=== PATIENT | male | born 1940 | race Caucasian/White ===

== ENCOUNTER 2024-06-18 16:44 | Day surgery (SDC) | payer MEDICARE, SELFPAY ==
[2024-06-18] VITALS (7 sets, daily range): BP systolic 112–161; BP diastolic 62–78; PULSE 62–76; RESP 12–18; TEMP 36.4–36.9; O2SAT 94–97; BMI 39.4
--- NOTE | 2024-06-18 17:07 | XR_ITS ---
Examination: PA chest single view Technique: Upright PA chest single view Exam date and time: June 18, 2024 1718 hrs. Comparison February 01, 2023 Indications: Hematoma post pacemaker insertion today. Findings: Normal heart size No pneumothorax or pulmonary contusion, no pulmonary hemorrhage or hemothorax Cardiac leads satisfactory position Osseous structures intact Impression: Cardiac leads satisfactory position No pneumothorax
[2024-06-18 17:38] LABS: Basophils # (Auto) 0.1 Thou/mm3 (0.0-0.2); Basophils % (Auto) 1 % (0-2.5); Eosinophils # (Auto) 0.1 Thou/mm3 (0.0-0.5); Eosinophils % (Auto) 1 % (0-10); Hematocrit 45.1 % (41.0-53.0); Hemoglobin 14.8 g/dL (13.5-16.0); Immature Granulocytes % (Auto) 1 % (0-0); Immature Granulocytes Auto 0.05 Thou/mm3 (0.00-0.00); Lymphocytes # (Auto) 1.2 Thou/mm3 (1.0-4.8); Lymphocytes % (Auto) 12 % (10-50); Mean Corpuscular HGB Conc 32.8 g/dl (31.0-37.0); Mean Corpuscular Hemoglobin 31.4 pg (25.0-35.0); Mean Corpuscular Volume 96 fL (80-100); Monocytes % (Auto) 10 % (0-12); Neutrophils # (Auto) 7.5 Thou/mm3 (1.8-7.7); Neutrophils % (Auto) 75 % (37-80); Nucleated Red Blood Cell % 0 /100 WBC (0); Platelet Count 243 Thou/mm3 (140-440); RDW Standard Deviation 53.9 fL (35.1-43.9); Red Blood Count 4.72 Miln/mm3 (4.50-5.90)
[2024-06-18 17:59] LABS: Partial Thromboplastin Time 26.7 Seconds (22.0-36.0); Prothrombin Time 11.1 Seconds (9.0-12.2)
[2024-06-18 18:00] LABS: Alanine Aminotransferase 10 U/L (10-49); Albumin/Globulin Ratio 1.3 (1.2-2.2); Alkaline Phosphatase 86 U/L (46-116); Anion Gap 5 (7-16); Aspartate Amino Transferase 21 U/L (0-34); BUN/Creatinine Ratio 11 Ratio (12-20); Bilirubin,Total 0.8 mg/dL (0.3-1.2); Blood Urea Nitrogen 18 mg/dL (9-23); Carbon Dioxide 22.9 mMol/L (20.0-31.0); Chloride 108 mMol/L (98-107); Creatinine (Component) 1.7 mg/dL (0.6-1.3); Estimated Creatinine Clearance 45.2 mL/min (>60); Glucose 117 mg/dL (74-106); Osmolality,Calculated 274 (275-295); Potassium 4.4 mMol/L (3.4-5.1); Sodium 136 mMol/L (136-145); eGFR 40 See Note
--- NOTE | 2024-06-18 19:00 | XR_ITS ---
Examination: AP chest 3 views Fluoroscopy Exam date and time: June 18, 20242016 hrs. Indications: Pacemaker revision today technique and findings: Technique And Findings: 3 spot fluoroscopic films of the chest Transvenous dual-chamber bipolar cardiac leads satisfactory position No pneumothorax noted Fluoroscopy 104 seconds radiation dose 28.67 milligray Impression: Cardiac leads satisfactory position
--- NOTE | 2024-06-18 20:17 | PD.EDRME ---
Rapid Medical Screening Exam [facility] Arrival date/time: 06/18/24 16:44 Chief Complaint: General Adult/Misc Complain Vital signs: Vital Signs Temperature 98.5 F 06/18/24 17:01 Pulse Rate 76 06/18/24 17:01 Respiratory Rate 18 06/18/24 17:01 Blood Pressure 112/65 06/18/24 17:01 Pulse Oximetry (%) 95 06/18/24 17:01 Oxygen Delivery Method Room Air 06/18/24 17:01 [facility] Narrative: I did not see the patient. I did not meet the patient. I did not take care of the patient. Gustavo Solis MD
--- NOTE | 2024-06-18 20:43 | SUR.PHASEI ---
2043: Pt. AAOx4, vitals stable, breathing unlabored, no complaint of pain or nausea, dressing to left upper chest CDI, no active bleed noted, report received from Kit STEVE and Tash TUBBS.
--- NOTE | 2024-06-18 21:20 | SUR.PHASEI ---
2120: Pt. AAOx4, vitals stable, breathing unlabored, no complaint of pain or nausea, dressing to left upper chest CDI, no active bleed noted, sling placed on left arm, pt. tolerated sips of water well, gave report to Irma TUBBS prior to transfer to room. Family made aware of transfer to room, pt. transferred with all his personal belongings.
--- NOTE | 2024-06-18 21:29 | ESOP_ITS ---
RE: GREGORIA MCBRIDE : 1940 DATE OF OPERATION: 06/18/2024 TIME: 8 p.m. OPERATION PERFORMED: 1. Evacuation of the hematoma site of permanent pacemaker implantation. 2. Repositioning of the ventricular lead and revision of the pocket. 3. Conscious sedation. DIAGNOSES: Status post permanent pacemaker implantation, large hematoma and ventricle lead slightly misplaced. HISTORY AND INDICATIONS: The patient is an 83-year-old male with history of sick sinus syndrome and paroxysmal AFib episode, admitted to the hospital in the morning as an outpatient surgery, underwent successful dual-chamber pacemaker implantation, was excellent. He went home and around 4 p.m., about 8 hours after the procedure, he moved and suddenly experienced bleeding at the site of the procedure with a large hematoma. Hence, the patient came to the emergency room. We admitted to the hospital the patient for evacuation of large hematoma and repositioning of the lead. Chest x-ray did show some decreased slack in the ventricular lead, also could not tell the position of the atrial lead, hence recommended to have a fluoroscopy and also pacemaker revision replacement. DESCRIPTION OF PROCEDURE: The patient was brought to the operating room. Conscious sedation, monitored anesthesia was given by anesthesiologist POWER. The patient was sedated. Left subclavian area was prepared in sterile fashion. A local anesthesia was given and luli were removed and the suture was cut and a large hematoma was evacuated successfully. Antibiotic irrigation fluid was used to irrigate the pocket. Subsequently, the ventricle lead appears to have good thresholds in atrium and ventricle, but the lead had some less slack. The ventricular lead was repositioned and extra slack was given and the ventricular lead was anchored to the pectoral fascia with 2-0 silk suture. Subsequently, the Yoogaia dual-chamber pacemaker generator was then repositioned and secured to the pectoral fascia. The subcutaneous tissue was closed using 2-0 chromic continuous suture. Skin was closed using luli. I also placed a pursestring suture around the leads to stop the bleeding and lessen the chance of bleeding from vein. The patient tolerated the operation very well. Cardiac fluoroscopy confirmed good placement of the leads. It was used to monitor the placement and repositioning of the leads. FINAL SUMMARY: Successful revision of the pocket with evacuation of the hematoma with good results. Successful repositioning, increasing the slack in the right ventricular lead. Thresholds were re-measured again and found to be excellent. The atrial threshold was excellent. The P waves are 4 millivolts, threshold of 0.75 volts. Ventricle threshold was also excellent. The amplitude was at 12 millivolts. The lead impedance in atrium was 530, ventricle 530. The ventricle threshold was 1 volt. The pacemaker was reprogrammed to DDDR mode, 60-130 beats per minute. The device details are as follows: The device that was implanted in the morning, same device was used, model number [id number], Yoogaia, serial number is [id number]. The patient will be admitted to the hospital, overnight observation. Antibiotics will be given and monitoring for any bleeding. DT: 20:55:44 TT: 21:27:00 Ref: [id number] - TID: [id number]
--- NOTE | 2024-06-18 21:37 | ESHP_ITS ---
RE: GREGORIA MCBRIDE : 1940 DATE OF ADMISSION: 06/18/2024 TIME OF ADMISSION: 7 p.m. REASON FOR ADMISSION: Postop following evacuation of the pacemaker hematoma and revision of the pocket. CHIEF COMPLAINT: Swelling at the site of pacemaker. HISTORY OF PRESENT ILLNESS: The patient is an 83-year-old male with history of sick sinus syndrome, underwent permanent pacemaker implantation 8 o'clock in the morning today, went home around 12 o'clock. He was doing well until about 4 o'clock, suddenly experienced swelling at the site and bleeding and large hematoma, came to my office, he was sent to the emergency department, fairly large hematoma was seen. There is also question of ventricle lead slack lessen and recommended to have repositioning of the leads, evacuation of hematoma. The patient is being admitted to the hospital. The patient underwent the procedure successfully, evacuation of hematoma was performed, given antibiotic and the patient had conscious sedation. Because of the lead dislodgement easily and also to revise procedure, we are admitting the patient for observation overnight for monitoring for bleeding at the site of surgery and also giving prophylactic IV antibiotics following surgery for next 2 doses in 24 hours. ALLERGIES: NONE. HOME MEDICATIONS: 1. Amiodarone 200 mg daily. 2. Levothyroxine 75 mcg daily. 3. Pantoprazole 40 mg daily. 4. Atorvastatin 10 mg daily. PAST MEDICAL HISTORY: Hypertension, sick sinus syndrome, hypercholesteremia, and hypothyroidism. SOCIAL HISTORY: The patient has paroxysmal atrial fibrillation, sick sinus syndrome. SOCIAL HISTORY: The patient is , lives with . He does not drink alcoholic beverages. FAMILY HISTORY: Noncontributory. REVIEW OF SYSTEMS: CARDIOVASCULAR: Swelling at the site of pacemaker. No chest pain or shortness of breath. No dizziness. GASTROINTESTINAL: No nausea or vomiting. GENITOURINARY: No frequency or dysuria. SUPERVISOR STRIPPING: No neurological symptoms. PHYSICAL EXAMINATION: GENERAL: Well-nourished, pleasant male, alert, awake, in no acute distress. VITAL SIGNS: Blood pressure 120/62, pulse rate is 70, respirations 16, temperature normal. HEENT: Head is atraumatic, normocephalic. Eyes: Normal. ENT: Normal. NECK: Supple. No JVD. Carotid pulses felt, but no bruits. CHEST: Symmetrical. LUNGS: Clear. CARDIOVASCULAR: Heart sounds are regular. No gallops or murmurs. ABDOMEN: Thin and soft. EXTREMITIES: No edema. Chest showed evidence of a 7 x 6 cm hematoma at the site of pacemaker implantation in left subclavian area and small ecchymosis. Chest x-ray showed evidence of possible less slack on ventricle leads. No pneumothorax. LABORATORY STUDIES: Showed coagulation panel normal. CBC is normal. Chemistry panel is normal. slightly elevated creatinine 1.7. ASSESSMENT: 1. Hematoma at the site of pacemaker implantation, requiring revision of the pacemaker and reposition of lead and evacuation of hematoma requiring hospitalization observation. 2. Hypertension. 3. Hypothyroidism. 4. Paroxysmal atrial fibrillation. 5. Sick sinus syndrome. 6. Hypercholesterolemia. 7. Chronic kidney disease, stage IIIB. RECOMMENDATIONS: The patient is recommended to continue medical management, overnight observation. We will discharge the patient home tomorrow on antibiotics. Continue IV Ancef for next 2 doses and tomorrow after morning rounds if he feels well, discharge him home on oral antibiotics. DT: 20:51:58 TT: 21:27:00 Ref: [id number] - TID: [id number]
[2024-06-19] VITALS: BP 107/54; PULSE 82; RESP 18; TEMP 36; O2SAT 95
[2024-06-19 03:51] VITALS: BP 149/63; PULSE 70; RESP 18; TEMP 36; O2SAT 97
[2024-06-19] MEDS: ceFAZolin/D5W 2 GM IV 2 GM/100 ML BAG IV ×2 (04:29→11:04)
[2024-06-19] MEDS: LEVOTHYROXINE SODIUM 25 MCG TABLET 75 MCG PO (05:33)
[2024-06-19 08:00] VITALS: BP 121/45; PULSE 70; RESP 20; TEMP 36.9; O2SAT 97
[2024-06-19] MEDS: PANTOPRAZOLE 20 MG TABLET 40 MG PO (08:28)
[2024-06-19 08:29] VITALS: BP 121/45; PULSE 70
[2024-06-19] MEDS: AMIODARONE HCL 200 MG TABLET PO (08:29)
[2024-06-19] MEDS: ATORVASTATIN CALCIUM 10 MG TABLET PO (08:29)
--- NOTE | 2024-06-19 08:53 | PC.SS ---
ELECTRICIAN SUBSTATION SUPERVISOR met with patient to obtain initial information. Patient is alert and oriented. Patient currently on 2L of O2. Patient comes from home, he reports living alone. Home address is [address] [place] [address] (different on FS). Patient identified his son, Zaid Jarquin as medical surrogate decision maker. PCP is Dr. Jeff. Pharmacy of choice is [facility] on [address]. Patient states he is independent with ADL's and denies utilizing any DME at home. Patient states he does not utilize any supplemental O2 at home. If needed before d/c he does not have a preferred DME vendor. Discharge plan is to return home, and his son Zaid will assist with transportation home. No needs identified at this time. D/c plan: home Next of kin: son, Zaid Jarquin
[2024-06-19 12:00] VITALS: BP 138/45; PULSE 64; RESP 19; TEMP 36.4; O2SAT 95
== END 2024-06-19 13:51 | disposition home or self-care (01) ==
LOC: SERX 20:49 → S2NX 06-19 09:05 → S2EX 06-19 09:30 → S2NX 06-19 09:30
PROVIDERS: Emergency Provider Emergency Medicine; PCP Family Medicine; Visit Provider Internal Medicine Cardiovascular Disease
PROC: (CPT 10180; principal; 2024-06-18 19:00)
PROC: (CPT 10180; 2024-06-18 19:00)
DX: I97.621 Postprocedural hematoma of a circulatory system organ or structure following other procedure (principal); Z45.018 Encounter for adjustment and management of other part of cardiac pacemaker; I49.5 Sick sinus syndrome; Y83.9 Surgical procedure, unspecified as the cause of abnormal reaction of the patient, or of later complication, without mention of misadventure at the time of the procedure; Y71.8 Miscellaneous cardiovascular devices associated with adverse incidents, not elsewhere classified; I48.0 Paroxysmal atrial fibrillation; I10 Essential (primary) hypertension; E78.00 Pure hypercholesterolemia, unspecified; E03.9 Hypothyroidism, unspecified; I12.9 Hypertensive chronic kidney disease with stage 1 through stage 4 chronic kidney disease, or unspecified chronic kidney disease; N18.32 Chronic kidney disease, stage 3b
CPT/HCPCS: 10180; 33226; 36415; 71045; 76000; 80048; 80053; 85025; 85610; 85730; 93005; 99152; 99153; 99285; A4565; A4649; C1785; C1894; C1898; J0689; J0690; J2250; J2704; J3010; J3370; J3490; J7050; A9270; J1596; J2598

== ENCOUNTER → 2025-02-19 | Outpatient (CLI) | payer OTHER, SELFPAY ==
[2025-02-19 10:21] LABS: Basophils # (Auto) 0.1 Thou/mm3 (0.0-0.2); Basophils % (Auto) 1 % (0-2.5); Eosinophils # (Auto) 0.2 Thou/mm3 (0.0-0.5); Eosinophils % (Auto) 2 % (0-10); Hemoglobin 14.4 g/dL (13.5-16.0); Immature Granulocytes % (Auto) 3 % (0-0); Lymphocytes # (Auto) 1.6 Thou/mm3 (1.0-4.8); Lymphocytes % (Auto) 21 % (10-50); Mean Corpuscular HGB Conc 32.7 g/dl (31.0-37.0); Mean Corpuscular Hemoglobin 30.9 pg (25.0-35.0); Mean Corpuscular Volume 94 fL (80-100); Monocytes # (Auto) 0.9 Thou/mm3 (0.0-0.8); Monocytes % (Auto) 12 % (0-12); Neutrophils # (Auto) 4.8 Thou/mm3 (1.8-7.7); Neutrophils % (Auto) 61 % (37-80); Nucleated Red Blood Cell % 0 /100 WBC (0); Platelet Count 281 Thou/mm3 (140-440); RDW Standard Deviation 52.7 fL (35.1-43.9); Red Blood Count 4.66 Miln/mm3 (4.50-5.90); White Blood Count 7.8 Thou/mm3 (3.8-10.6)
[2025-02-19 10:26] LABS: Amphetamine/Methamp Scrn,U Negative (Negative); Barbiturate Screen,Urine Negative (Negative); Benzodiazepines Screen,Urine Negative (Negative); Benzoylecgonine Screen, Ur Negative (Negative); Fentanyl Screen,Urine Negative (Negative); Opiate Screen,Urine Negative (Negative); THC Screen,Urine Negative (Negative)
[2025-02-19 10:39] LABS: Albumin, Serum 3.7 gm/dL (3.4-4.8); Anion Gap 9 (7-16); BUN/Creatinine Ratio 16 Ratio (12-20); Blood Urea Nitrogen 25 mg/dL (9-23); Calcium 9.3 mg/dL (8.3-10.6); Calcium (Corrected) 9.5 mg/dL (8.5-10.1); Carbon Dioxide 27.4 mMol/L (20.0-31.0); Chloride 108 mMol/L (98-107); Creatinine (Component) 1.6 mg/dL (0.6-1.3); Glucose 98 mg/dL (74-106); Osmolality,Calculated 291 (275-295); Phosphorous 2.4 mg/dL (2.4-5.1); Potassium 4.5 mMol/L (3.4-5.1); Sodium 144 mMol/L (136-145); eGFR 43 See Note
[2025-02-19 12:11] LABS: Folate 10.79 ng/mL (>5.38); Vitamin B12 1793 pg/mL (211-911)
== END | disposition home or self-care (01) ==
LOC: COPL 09:19
PROVIDERS: PCP Family Medicine; Referring Provider Family Medicine; Visit Provider Family Medicine
DX: D64.9 Anemia, unspecified (principal); G64 Other disorders of peripheral nervous system; M54.2 Cervicalgia; Z71.51 Drug abuse counseling and surveillance of drug abuser
CPT/HCPCS: 36415; 80069; 80307; 82607; 82746; 85025

== ENCOUNTER → 2025-09-16 | Outpatient (CLI) | payer OTHER, SELFPAY ==
[2025-09-16 10:32] LABS: Basophils # (Auto) 0.1 Thou/mm3 (0.0-0.2); Basophils % (Auto) 1 % (0-2.5); Eosinophils # (Auto) 0.1 Thou/mm3 (0.0-0.5); Eosinophils % (Auto) 1 % (0-10); Hematocrit 46.6 % (41.0-53.0); Hemoglobin 14.8 g/dL (13.5-16.0); Immature Granulocytes Auto 0.12 Thou/mm3 (0.00-0.00); Lymphocytes # (Auto) 1.1 Thou/mm3 (1.0-4.8); Lymphocytes % (Auto) 18 % (10-50); Mean Corpuscular HGB Conc 31.8 g/dl (31.0-37.0); Mean Corpuscular Hemoglobin 31.0 pg (25.0-35.0); Mean Corpuscular Volume 98 fL (80-100); Monocytes # (Auto) 1.0 Thou/mm3 (0.0-0.8); Monocytes % (Auto) 15 % (0-12); Neutrophils # (Auto) 4.1 Thou/mm3 (1.8-7.7); Neutrophils % (Auto) 63 % (37-80); Nucleated Red Blood Cell # 0.00 Thou/mm3 (0.00-0.00); Nucleated Red Blood Cell % 0 /100 WBC (0); Platelet Count 251 Thou/mm3 (140-440); RDW Standard Deviation 52.4 fL (35.1-43.9); Red Blood Count 4.78 Miln/mm3 (4.50-5.90); White Blood Count 6.5 Thou/mm3 (3.8-10.6)
[2025-09-16 10:43] LABS: Glucose Estimated Average 108 mg/dL (80-131); Hemoglobin A1C 5.4 % Hgb (4.8-6.0)
[2025-09-16 10:48] LABS: Alanine Aminotransferase 39 U/L (10-49); Albumin, Serum 4.4 gm/dL (3.4-4.8); Albumin/Globulin Ratio 1.9 (1.2-2.2); Alkaline Phosphatase 94 U/L (46-116); Anion Gap 9 (7-16); Aspartate Amino Transferase 24 U/L (0-34); BUN/Creatinine Ratio 15 Ratio (12-20); Bilirubin,Total 1.1 mg/dL (0.3-1.2); Blood Urea Nitrogen 25 mg/dL (9-23); Calcium 8.6 mg/dL (8.3-10.6); Calcium (Corrected) 8.6 mg/dL (8.5-10.1); Carbon Dioxide 25.8 mMol/L (20.0-31.0); Cardiac Risk Estimate 3.3 RATIO (4.0-6.7); Chloride 106 mMol/L (98-107); Cholesterol 132 mg/dL (132-200); Creatinine (Component) 1.7 mg/dL (0.6-1.3); Free T4 (Free Thyroxine) 1.98 ng/dL (0.89-1.76); Globulin 2.3 gm/dL (2.3-3.5); Glucose 104 mg/dL (74-106); HDL Cholesterol 40 mg/dL (40-60); LDL Cholesterol,Calculated 75 mg/dL (0-130); Osmolality,Calculated 285 (275-295); Potassium 4.3 mMol/L (3.4-5.1); Sodium 141 mMol/L (136-145); Thyroid Stimulating Hormone 2.95 uIU/mL (0.55-4.78); Total Protein 6.7 gm/dL (5.7-8.2); Triglycerides 84 mg/dL (30-150); eGFR 40 See Note
[2025-09-23 22:05] LABS: PSA, Free 0.40 ng/mL; PSA, Total 1.5 ng/mL (< OR = 4.0)
[2025-09-24 06:20] LABS: Testosterone, Free,Dialysis 22.7 pg/mL (30.0-135.0); Testosterone, Total, Dialysis 269 ng/dL (250-1100)
== END | disposition home or self-care (01) ==
PROVIDERS: PCP Student in an Organized Health Care Education/Training Program; Referring Provider Student in an Organized Health Care Education/Training Program; Visit Provider Student in an Organized Health Care Education/Training Program
DX: E29.1 Testicular hypofunction (principal); E03.9 Hypothyroidism, unspecified; I25.10 Atherosclerotic heart disease of native coronary artery without angina pectoris; I10 Essential (primary) hypertension; Z12.5 Encounter for screening for malignant neoplasm of prostate
CPT/HCPCS: 36415; 80053; 80061; 83036; 84153; 84154; 84402; 84403; 84439; 84443; 85025